=== PATIENT | male | born 1970 | race Hispanic/Latino ===

== ENCOUNTER 2019-06-13 09:41 | Inpatient (IN) | payer SELFPAY ==
[~2019-06-13] VITALS: Ht 162.6 cm; Wt 92.1 kg
[2019-06-13] MEDS ORDERED: IPRATROPIUM BROMIDE 0.02% 2.5 ML NEB NEB STA (10:35)
[2019-06-13] MEDS ORDERED: ALBUTEROL SULF 0.083% NEB SOLN 3 ML NEB NEB STA (10:35)
[2019-06-13] MEDS ORDERED: AZITHROMYCIN 500MG/NS 250 ML 250 ML IV ONE ×2 (11:00→15:30)
[2019-06-13] MEDS ORDERED: CEFTRIAXONE SOD 1 GM/NS 50 ML 50 ML IV ONE ×2 (11:00→14:45)
[2019-06-13 13:29] LABS: BASOPHILS # (AUTO) 0.1 (0.0-0.1); BASOPHILS % 0.7 % (0.0-1.0); EOSINOPHILS % 0.4 % (0.0-6.0); HEMATOCRIT 38.5 % (38.2-49.6); HEMOGLOBIN 12.9 g/dL (14.0-18.0); LYMPHOCYTES # (AUTO) 1.4 (1.0-3.2); LYMPHOCYTES % 19.6 % (18.0-39.1); MEAN CORPUSCULAR HEMOGLOBIN 29.7 pg (28-32); MEAN CORPUSCULAR HGB CONC 33.5 g/dL (31-35); MEAN CORPUSCULAR VOLUME 88.5 fL (81-99); MONOCYTES # (AUTO) 0.7 (0.2-0.8); MONOCYTES % 9.6 % (4.4-11.3); NEUTROPHILS # (AUTO) 4.8 (2.1-6.9); NEUTROPHILS % 69.3 % (38.7-80.0); PLATELET COUNT 277 x10e3/uL (140-360); RED BLOOD COUNT 4.35 x10e6/uL (4.3-5.7)
[2019-06-13] MEDS ORDERED: SODIUM CHLORIDE 0.9% 1000ML 1,000 ML IV STA ×2 (13:52)
[2019-06-13 13:54] LABS: ALANINE AMINOTRANSFERASE 19 IU/L (0-55); ALBUMIN 3.6 g/dL (3.5-5.0); ALBUMIN/GLOBULIN RATIO 0.8 (0.8-2.0); ALKALINE PHOSPHATASE 105 IU/L (40-150); ANION GAP 15.3 mmol/L (8-16); BLOOD UREA NITROGEN 24 mg/dL (7-26); BUN/CREATININE RATIO 23 (6-25); CALCIUM 10.1 mg/dL (8.4-10.2); CARBON DIOXIDE 24 mmol/L (22-29); CHLORIDE 100 mmol/L (98-107); CREATININE, SERUM 1.03 mg/dL (0.72-1.25); EST GLOMERULAR FILTRATION RATE > 60 ML/MIN (60-); GLUCOSE 159 mg/dL (74-118); POTASSIUM 4.3 mmol/L (3.5-5.1); SODIUM 135 mmol/L (136-145)
--- NOTE | 2019-06-13 15:19 | Diagnostic Imaging Report ---
EXAM: CT Chest WITH intravenous contrast 06/13/2019 10:35 AM INDICATION: Cough COMPARISON: None TECHNIQUE: Chest was scanned utilizing a multidetector helical scanner from the lung apex through the level of the adrenal glands after administration of IV contrast. Coronal and sagittal reformations were obtained. Routine protocol was performed. IV CONTRAST: 100mL Isovue 370 RADIATION DOSE: Total DLP: 462.0 mGy*cm. Dose modulation, iterative reconstruction, and/or weight based adjustment of the mA/kV was utilized to reduce the radiation dose to as low as reasonably achievable. COMPLICATIONS: None FINDINGS: LINES/ TUBES: None. LUNGS AND AIRWAYS: The central airways are patent. No focal consolidation. No pulmonary edema. Subsegmental atelectasis at the posterior left lower lobe. 5 mm lingular nodule (series 3 image 70). PLEURA: Moderate left pleural effusion. No pneumothorax. HEART AND MEDIASTINUM: The thyroid gland is normal. No supraclavicular, mediastinal, or hilar lymphadenopathy. The heart is not enlarged. No pericardial effusion. The main pulmonary artery is not enlarged. No central pulmonary embolism. UPPER ABDOMEN: Limited contrast-enhanced views of the upper abdomen demonstrate no focal abnormality of the partially visualized liver, spleen, pancreas, adrenals, or upper most kidneys. Partially visualized gallstone in the gallbladder. BONES: No acute osseous injury. No suspicious lytic or blastic lesions. SOFT TISSUES: Unremarkable. IMPRESSION: No focal pneumonia or pulmonary edema. Moderate left pleural effusion. 5 mm lingular nodule. If the patient is high risk, CT is optional at 12 months. If the patient is low risk, no further imaging follow-up is required. Cholelithiasis. Signed by: Chadwick Zamora MD on 06/13/2019 3:15 PM
[2019-06-13] MEDS ORDERED: SODIUM CHLORIDE FLUSH 10 ML SYR INJ PRN (15:45)
--- OUTSIDE RECORDS SUMMARY | 2019-06-13 15:46 | XMS REPORT ---
Author Author [facility] Address Unknown Phone Unavailable Care Team Providers Care Rail Transportation Operator Name Role Phone Jael MARIE Unavailable Unavailable Problems This patient has no known problems. Allergies, Adverse Reactions, Alerts This patient has no known allergies or adverse reactions. Medications This patient has no known medications. Results Test Description Test Time Test Comments Text Results Atomic Results Result Comments CT CHEST W 2019-06-13 15:07:00 [place] [address] Patient Name: SAIGE SUAREZ MR #: [id number] : 1970 Age/Sex: 48/M Req #: [id number] Adm Physician: Ordered by: TRA MELENDEZ BASS GUITAR TEACHER Report #: [id number] Location: ER Room/Bed: Procedure: [id number] CT/CT CHEST W Exam Date: 06/13/19 Exam Time: 1445 REPORT STATUS: Signed EXAM: CT Chest WITH intravenous contrast 06/13/2019 10:35 AM INDICATION: Cough COMPARISON: None TECHNIQUE: Chest was scanned utilizing a multidetector helical scanner from the lung apex through the level of the adrenal glands after administration of IV contrast. Coronal and sagittal reformations were obtained. Routine protocol was performed. IV CONTRAST: 100mL Isovue 370 RADIATION DOSE: Total DLP: 462.0 mGy*cm. Dose modulation, iterative reconstruction, and/or weight based adjustment of the mA/kV was utilized to reduce the radiation dose to as low as reasonably achievable. COMPLICATIONS: None FINDINGS: LINES/ TUBES: None. LUNGS AND AIRWAYS: The central airways are patent. No focal consolidation. No pulmonary edema. Subsegmental atelectasis at the posterior left lower lobe. 5 mm lingular nodule (series 3 image 70). PLEURA: Moderate left pleural effusion. No pneumothorax. HEART AND MEDIASTINUM: The thyroid gland is normal. No supraclavicular, mediastinal, or hilar lymphadenopathy. The heart is not enlarged. No pericardial effusion. The main pulmonary artery is not enlarged. No central pulmonary embolism. UPPER ABDOMEN: Limited contrast-enhanced views of the upper abdomen demonstrate no focal abnormality of the partially visualized liver, spleen, pancreas, adrenals, or upper most kidneys. Partially visualized gallstone in the gallbladder. BONES: No acute osseous injury. No suspicious lytic or blastic lesions. SOFT TISSUES: Unremarkable. IMPRESSION: No focal pneumonia or pulmonary edema. Moderate left pleural effusion. 5 mm lingular nodule. If the patient is high risk, CT is optional at 12 months. If the patient is low risk, no further imaging follow-up is required. Cholelithiasis. Signed by: Aide Munoz MD on 06/13/2019 3:15 PM Dictated By: AIDE MUNOZ MD [id number] Transcribed By: MARANDA on 06/13/19 0987 COPY TO: TRA MELENDEZ NP
[2019-06-13] MEDS ORDERED: DEXTROSE 50% SYRINGE 50 ML IV PRN (16:45)
[2019-06-13 17:06] VITALS: BP 122/75
[2019-06-13 17:10] VITALS: BP 122/75
--- NOTE | 2019-06-13 17:10 | NUR ---
PATIENT RECEIVED FROM ER PER STRETCHER. ALERT AND VERBALLY RESPONSIVE. SKIN WARM AND DRY TO TOUCH, WITH SOME BRUISES TO RIGHT UPPER CHEST. RESPIRATION EVEN AND UNLABORED, ABDOMEN SOFT AND NON DISTENDED. PATIENT ORIENTED TO SURROUNDINGS. BED IN LOWER POSITION, CALL LIGHT AT REACH. INSTRUCTED TO CALL FOR ASSISTANCE NEEDED. FAMILY AT BED SIDE
[2019-06-13] MEDS ORDERED: IOPAMIDOL 370 MG/ML 200 ML INFUS..BTL INJ ONE (18:46)
[2019-06-13] MEDS ORDERED: SODIUM CHLORIDE 0.9% 50ML 50 ML ONE (18:46)
[2019-06-13] MEDS: ALBUTEROL/IPRATROPIUM 3 ML NEB NEB SCH (19:20)
[2019-06-13 20:39] VITALS: BP 109/73
[2019-06-13] MEDS ORDERED: HYDROCHLOROTH12.5 MG PO (20:59)
[2019-06-13] MEDS ORDERED: ATORVASTATIN CA20 MG PO (20:59)
[2019-06-13] MEDS ORDERED: TESSALON PERLE100 MG PO (20:59)
[2019-06-13] MEDS ORDERED: PIOGLITAZONE HC45 MG PO (20:59)
[2019-06-13] MEDS ORDERED: GLIPIZIDE5 MG PO (20:59)
[2019-06-13] MEDS ORDERED: METOPROLOL TART50 MG PO (20:59)
[2019-06-13] MEDS ORDERED: AMOX TR-K CLV1 EAC2 PO (20:59)
[2019-06-13] MEDS ORDERED: METFORMIN HCL500 MG PO (20:59)
[2019-06-13] MEDS ORDERED: LISINOPRIL10 MG PO (20:59)
[2019-06-13 21:00] VITALS: BP 109/73
[2019-06-13] MEDS ORDERED: NON-FORMULARY MEDICATION (Benzonatate (Tessalon Perle) 200 MG) PO PRN (21:30)
[2019-06-13] MEDS ORDERED: BENZONATATE 100 MG CAP PO PRN (21:45)
[2019-06-13] MEDS ORDERED: ATORVASTATIN 40 MG TAB PO ONE (21:45)
[2019-06-13] MEDS ORDERED: ATORVASTATIN 20 MG TAB PO ONE (21:45)
[2019-06-13] MEDS: INSULIN REGULAR, HUMAN 100 UNIT/1 ML 3ML VIAL SQ SCH (22:01)
[2019-06-14] VITALS (8 sets, daily range): BP systolic 106–139; BP diastolic 65–74
[2019-06-14] MEDS: ALBUTEROL/IPRATROPIUM 3 ML NEB NEB SCH ×4 (01:00→19:52)
--- NOTE | 2019-06-14 01:33 | Consultation ---
DATE OF CONSULTATION: Pulmonary Consultation REASON FOR CONSULT: Pleural effusion. CHIEF COMPLAINT: Shortness of breath. HISTORY OF PRESENT ILLNESS: Mr. Romeo is a 48-year-old male, who presented to the emergency room with shortness of breath and cough. The patient went to a clinic and an x-ray was done, which showed pleural effusion and he was sent to the emergency room. He reports that the symptoms started a few days ago and progressively got worse. He was having some cough, chills, and muscle aches as well. He denies any nausea, vomiting, diarrhea. He smoked only 5 years in his life. When he came to the emergency room, his lactic acid was 3.1 and went down to 2.0. He is feeling better now. He received IV azithromycin and Rocephin in the emergency room. REVIEW OF SYSTEMS: GENERAL: Fever and chills. HEAD: Denies any head trauma. ENT: Denies any earache. CVS: Denies any chest pain. RESPIRATORY: Shortness of breath. GI: Denies any nausea or vomiting. Rest of the review of systems are negative except as in HPI. PAST MEDICAL HISTORY: Diabetes. PAST SURGICAL HISTORY: Fatty tumor removal. FAMILY AND SOCIAL HISTORY: He smoked only for 5 years in his life. He does not drink. PHYSICAL EXAMINATION: VITAL SIGNS: Temperature 97.1, pulse of 100, blood pressure 122/75. CHEST: Decreased air entry on the left side, otherwise clear to auscultation. No wheezing. No crackles. HEART: S1 and S2 audible. ABDOMEN: Soft. EXTREMITIES: No pedal edema. NEUROLOGIC: Awake and alert. No focal neurologic deficit. LABORATORY DATA: Reviewed. CT of the chest, I have reviewed the films, left-sided pleural effusion, very small nodule, which will need followup, possibility of underlying pneumonia because there is a left lower lobe infiltrate, which can be compression atelectasis due to fluid versus pneumonia. ASSESSMENT: Mr. Romeo is a 48-year-old male, admitted with shortness of breath, cough, fever, chills. Lactic acid was high, likely has pneumonia and parapneumonic effusion. PLAN: 1. Thoracentesis. 2. IV antibiotics. 3. We will check influenza antigen. Nebulizer treatment as ordered. Oxygen as needed to keep the O2 saturation more than or equal to 92%. Thank you for this consult. MD KANIKA Mueller/MAURISIO /[id number]
--- NOTE | 2019-06-14 01:43 | History and Physical ---
REASON FOR ADMISSION: A 48-year-old male comes in with shortness of breath and cough. HISTORY OF PRESENTING ILLNESS: Mr. Nestor Eastman was in his usual state of health until one week ago, the patient started with cough and congestion, exacerbated and got worse, saw an outside physician, was prescribed Augmentin and also given albuterol and Atrovent treatments. The patient did not get any better, cough got worse. The patient came into the hospital, was found to have pleural effusion and possible pneumonia. PAST MEDICAL HISTORY: History of diabetes mellitus, history of hypertension, and history of hyperlipidemia. MEDICATIONS: The patient has been taking oral medications for diabetes. The patient's medications he takes at home according to the is Pioglitazone 30 mg, he takes lisinopril/hydrochlorothiazide 40/12.5, atorvastatin 80 mg, and also the patient takes metformin at home. SOCIAL HISTORY: No EtOH. No IV drug abuse. PAST SURGICAL HISTORY: Positive for history of apparent right sebaceous cyst removal from the right breast. REVIEW OF SYSTEMS: Negative for chest pain. Positive for shortness of breath. Negative for nausea. No vomiting. No diarrhea. No constipation. No rectal bleeding. No hematochezia. No hematemesis either. PHYSICAL EXAMINATION: VITAL SIGNS: Temperature is 97.1, pulse of 103, respirations of 20, blood pressure is 122/75, and pulse oximetry 98% on room air. HEENT: Normocephalic and atraumatic. Pupils are reactive to light and accommodation. CVS: S1 and S2 normal. Regular rate and rhythm. ABDOMEN: Nontender and nondistended. LUNGS: Positive for decreased air entry on the left side and dullness on the left side. LABORATORY VALUES: White count of 6.98, hemoglobin of 12.9, and hematocrit of 38.5. Chemistry shows sodium of 135, potassium of 4.3, BUN of 24, and creatinine of 1.03. Lactic acid was 3.1, come down to 2.0. Fluids were given. IMAGING STUDIES: CT of the chest shows no focal pneumonia or pulmonary edema. Moderate left pleural effusion, 5 mm lingular nodule. The patient is at high-resolution CT potential option in 12 months, cholelithiasis too. ASSESSMENT: Mr. Nestor Eastman with: 1. Sepsis. 2. Pneumonia. 3. Pleural effusion, probably parapneumonic. 4. History of hypertension. 5. History of hyperlipidemia. 6. History of diabetes mellitus. PLAN: Continue monitoring the patient. Consult with Dr. Gross will be done. The patient also has an IR consult for pleural effusion drainage. Further recommendations per clinical course. Currently, the patient is on empiric antibiotic of Rocephin and Zithromax. MD HOLLEY Madden/MODL /[id number]
[2019-06-14 05:04] LABS: BASOPHILS % 0.4 % (0.0-1.0); EOSINOPHILS # (AUTO) 0.1 (0.0-0.4); EOSINOPHILS % 1.1 % (0.0-6.0); HEMATOCRIT 32.5 % (38.2-49.6); HEMOGLOBIN 11.1 g/dL (14.0-18.0); LYMPHOCYTES # (AUTO) 0.9 (1.0-3.2); LYMPHOCYTES % 19.3 % (18.0-39.1); MEAN CORPUSCULAR HEMOGLOBIN 29.8 pg (28-32); MEAN CORPUSCULAR HGB CONC 34.2 g/dL (31-35); MEAN CORPUSCULAR VOLUME 87.4 fL (81-99); MONOCYTES # (AUTO) 0.4 (0.2-0.8); MONOCYTES % 9.3 % (4.4-11.3); NEUTROPHILS # (AUTO) 3.1 (2.1-6.9); NEUTROPHILS % 69.5 % (38.7-80.0); PLATELET COUNT 228 x10e3/uL (140-360); RED BLOOD COUNT 3.72 x10e6/uL (4.3-5.7); RED CELL DISTRIBUTION WIDTH 11.9 % (11.7-14.4)
[2019-06-14 05:33] LABS: ANION GAP 11.9 mmol/L (8-16); BLOOD UREA NITROGEN 13 mg/dL (7-26); BUN/CREATININE RATIO 16 (6-25); CALCIUM 9.2 mg/dL (8.4-10.2); CARBON DIOXIDE 25 mmol/L (22-29); CHLORIDE 104 mmol/L (98-107); CREATININE, SERUM 0.79 mg/dL (0.72-1.25); EST GLOMERULAR FILTRATION RATE > 60 ML/MIN (60-); GLUCOSE 172 mg/dL (74-118); POTASSIUM 3.9 mmol/L (3.5-5.1); SODIUM 137 mmol/L (136-145)
--- NOTE | 2019-06-14 07:20 | NUR ---
PATIENT OUT OF BED TO CHAIR, NO COMPLAIN VOICED. CALL LIGHT AT EASY REACH.
[2019-06-14] MEDS: INSULIN REGULAR, HUMAN 100 UNIT/1 ML 3ML VIAL SQ SCH ×4 (07:30→21:23)
[2019-06-14] MEDS ORDERED: AZITHROMYCIN 250MG/NS 100 ML 100 ML IV SCH (08:00)
[2019-06-14] MEDS ORDERED: CEFTRIAXONE SOD 1 GM VIAL IV SCH (08:00)
[2019-06-14] MEDS: CEFTRIAXONE SOD 1 GM/NS 50 ML 50 ML IV SCH (08:30)
--- NOTE | 2019-06-14 08:50 | Diagnostic Imaging Report ---
EXAMINATION: CHEST SINGLE (PORTABLE) INDICATION: Pleural effusion COMPARISON: Chest CT of 06/13/2019 FINDINGS: LINES/TUBES:None LUNGS:The lung volumes are low. There is left basilar opacity silhouetting the left izzy diaphragm. PLEURA:Small left pleural effusion. No pneumothorax. MEDIASTINUM:The cardiomediastinal silhouette appears unchanged in size and shape. BONES/SOFT TISSUES:No acute osseous injury. ABDOMEN:No free air under the diaphragm. IMPRESSION: Low lung volumes. Small left pleural effusion. Patchy opacity at the left lung base likely represents associated subsegmental atelectasis. Signed by: Chadwick Zamora MD on 06/14/2019 8:47 AM
[2019-06-14] MEDS ORDERED: LISINOPRIL 10 MG TAB PO SCH (09:00)
[2019-06-14] MEDS ORDERED: PIOGLITAZONE HCL 45 MG TAB PO SCH (09:00)
[2019-06-14] MEDS ORDERED: NON-FORMULARY MEDICATION (Hydrochlorothiazide 12.5 MG) PO SCH (09:00)
[2019-06-14] MEDS: AZITHROMYCIN 500MG/NS 250 ML 250 ML IV SCH (09:25)
[2019-06-14] MEDS: METOPROLOL TARTRATE 50 MG TAB PO SCH (09:25)
[2019-06-14] MEDS: HYDROCHLOROTHIAZIDE 25 MG TAB PO SCH (09:25)
[2019-06-14] MEDS: LISINOPRIL 20 MG TAB PO SCH (09:25)
[2019-06-14] MEDS ORDERED: SODIUM CHLORIDE 0.9% 250ML 250 ML ONE (09:29)
--- NOTE | 2019-06-14 09:29 | Progress Note ---
DATE: SUBJECTIVE: The patient is a 48-year-old gentleman, who comes in with continuous cough, congestion. The patient came into the ER, who was found to have pleural effusion, possibly parapneumonic and lung nodule, and fever. Today, the patient complains of excessive sweating. No chest pain. Positive for some shortness of breath. No nausea. No vomiting. No diarrhea. MEDICATIONS: The patient is currently on azithromycin and Rocephin. He is also on insulin sliding scale and his regular medications, lisinopril, and metoprolol. PHYSICAL EXAMINATION: VITAL SIGNS: Temperature is 98.4, pulse of 90, respirations 16, blood pressure is 111/68, and pulse oximetry of 95%. HEENT: Normocephalic, atraumatic. Pupils are reactive to light and accommodation. CVS: S1 and S2 normal. Regular rate and rhythm. LUNGS: Positive for decreased air entry into the left lung munson. ABDOMEN: Nontender, nondistended. EXTREMITIES: No clubbing, no cyanosis, no edema. LABORATORY VALUES: White count is 4.50, hemoglobin of 11.1, hematocrit of 32.5. Chemistry of sodium 137, potassium 3.9. BUN of 13, creatinine 0.79, glucose at 172, lactic acid trended up from 3.1 to 2, calcium 9.2. ASSESSMENT: 1. Pneumonia. 2. Parapneumonic effusion. 3. Hypertension. 4. Hyperlipidemia. PLAN: The patient is on IV antibiotics at this time. We will continue the same. Thoracentesis to be scheduled today. The patient on O2 to keep saturation above 92%. Albuterol and Atrovent treatments. Further recommendation per clinical course and also depending on the thoracentesis. The patient's disposition will be here for another two more days depending on the progression of the pleural effusion and also clinical findings. Further recommendation per clinical course. We will continue to monitor the patient. MD HOLLEY Madden/MODL /[id number]
--- NOTE | 2019-06-14 11:28 | NUR ---
PATIENT ASSISTED TO THE RESTROOM AND BACK TO BED. SITTING UP IN BED TALKING TO FAMILY MEMBER VISITING. CALL LIGHT AT REACH.
[2019-06-14 12:07] LABS: INR 0.99; PROTHROMBIN TIME 13.6 seconds (11.9-14.5)
[2019-06-14 12:08] LABS: PARTIAL THROMBOPLASTIN TIME 29.5 seconds (23.8-35.5)
--- NOTE | 2019-06-14 14:24 | NUR ---
GAVE PACKET OF INFORMATION WITH COMMUNITY RESOURCES FOR ASSISTANCE WITH LOW TO NO INCOME TO PATIENT. RESOURCES THAT PATIENT MAY BE ABLE TO FOLLOW UP UPON DISCHARGE. PT EDUCATED ON EACH RESOURCE AND UNDERSTANDING HOW TO FOLLOW UP TO SEE IF QUALIFIED FOR EACH RESOURCE
--- NOTE | 2019-06-14 15:09 | NUR ---
BED SIDE THORACENTESIS COMPLETED. DRESSING INTACT TO LEFT BACK. PATIENT DENIED PAIN, CALL LIGHT AT REACH.
--- NOTE | 2019-06-14 15:25 | Diagnostic Imaging Report ---
PROCEDURE: Ultrasound-guided diagnostic and therapeutic thoracentesis Procedural Personnel Attending physician(s): Chadwick Zamora MD Fellow physician(s): None Resident physician(s): None Advanced practice provider(s): None Pre-procedure diagnosis: Left pleural effusion. Post-procedure diagnosis: Same Indication: Pleural effusion with compromised respiration Additional clinical history: None Complications: No immediate complications. IMPRESSION: Ultrasound-guided thoracentesis with drainage of 1000 mL of serous fluid. Plan: Resume care by clinical team. PROCEDURE SUMMARY: - Limited thoracic ultrasound - Ultrasound-guided thoracentesis - Additional procedure(s): None PROCEDURE DETAILS: Pre-procedure Consent: Informed consent for the procedure including risks, benefits and alternatives was obtained and time-out was performed prior to the procedure. Preparation: The site was prepared and draped using maximal sterile barrier technique including cutaneous antisepsis. Anesthesia/sedation Level of anesthesia/sedation: No sedation Anesthesia/sedation administered by: Not applicable Limited thoracic ultrasound Limited thoracic ultrasound was performed using a curved transducer. A safe window for thoracentesis was identified. Left hemithorax findings: Moderate pleural effusion Right hemithorax findings: Not investigated Thoracentesis Local anesthesia was administered. The pleural space was accessed under real-time ultrasound guidance and fluid return confirmed position. The fluid was drained. The catheter was removed, and a sterile bandage was applied. Catheter placed: 5F Deboraheh Post-drainage hemithorax findings: Not performed Additional Details Additional description of procedure: None Equipment details: None Specimens removed: Pleural fluid Estimated blood loss (mL): Less than 10 Standardized report: [email or web address] Attestation Signer name: Chadwick Zamora MD I attest that I was present for the entire procedure. I reviewed the stored images and agree with the report as written. Signed by: Chadwick Zamora MD on 06/14/2019 3:21 PM
--- NOTE | 2019-06-14 15:30 | Diagnostic Imaging Report ---
EXAMINATION: CHEST XRAY POST PROCEDURE INDICATION: Postprocedural COMPARISON: Thoracentesis of earlier the same day, chest radiograph of earlier the same day FINDINGS: LINES/TUBES:None LUNGS:The lung volumes are improved status post thoracentesis. There is left basilar opacity silhouetting the left izzy diaphragm. PLEURA:Small residual left pleural effusion. No pneumothorax status post thoracentesis. MEDIASTINUM:The cardiomediastinal silhouette appears unchanged in size and shape. BONES/SOFT TISSUES:No acute osseous injury. ABDOMEN:No free air under the diaphragm. IMPRESSION: No pneumothorax status post left thoracentesis. Small residual left pleural effusion. Patchy opacity at the left lung base, likely subsegmental atelectasis. Signed by: Chadwick Zamora MD on 06/14/2019 3:26 PM
--- NOTE | 2019-06-14 15:45 | NUR ---
1000 CC OF FLUID REMOVED DURING THORACENTESIS PER IR NURSE. DRESSING DRY AND INTACT TO LEFT BACK.
[2019-06-14 16:25] LABS: BODY FLUID COLOR YELLOW; BODY FLUID TYPE PLEURAL
[2019-06-14 16:26] LABS: BODY FLUID APPEARANCE CLOUDY
[2019-06-14 20:16] LABS: RBC,BODY FLUID 1564 cells/uL; WBC,BODY FLUID 4752 cells/uL
[2019-06-14 20:45] LABS: LYMPHOCYTES,BODY FLUID 64 %; MONO/MACROPHG,BODY FLUID 26 %; OTHER CELLS,BODY FLUID 10 %
[2019-06-14] MEDS ORDERED: ACETAMINOPHEN 325 MG TAB PO PRN (20:45)
[2019-06-14] MEDS ORDERED: ATORVASTATIN 20 MG TAB PO SCH (21:00)
[2019-06-14] MEDS ORDERED: ATORVASTATIN 40 MG TAB PO SCH (21:00)
[2019-06-14 21:18] LABS: NEUTROPHILS,BODY FLUID 0 %
[2019-06-15] VITALS: BP 106/65
[2019-06-15] MEDS: ALBUTEROL/IPRATROPIUM 3 ML NEB NEB SCH ×2 (00:45→07:00)
[2019-06-15 04:00] VITALS: BP 108/66
--- NOTE | 2019-06-15 07:57 | Progress Note ---
DATE: SUBJECTIVE: The patient is here for a possible parapneumonic effusion, status post thoracentesis, 1 L was removed yesterday, sent for studies. The patient is currently feeling much better. Shortness of breath is decreased. No cough. No congestion. Ran a little fever yesterday, but otherwise in good spirits. OBJECTIVE: VITAL SIGNS: Temperature is 98.4, T-max is 99.8 at 2142 yesterday, respirations 16, blood pressure is 108/66, pulse oximetry of 100%. HEENT: Normocephalic and atraumatic. Pupils are reactive to light and accommodation. CVS: S1 and S2 normal. Regular rate and rhythm. LUNGS: Left lung still with some dullness and decreased air entry. EXTREMITIES: No clubbing. No cyanosis. No edema. ABDOMEN: Nontender. LABORATORY VALUES: None done today. Chemistries from yesterday, glucoses have been running in the 170s to 200. Chest x-ray yesterday, status post removal shows no pneumothorax and small residual left pleural effusion. Patchy opacity in the left lung base, likely subsegmental atelectasis. ASSESSMENT: 1. Pneumonia. 2. Possible parapneumonic effusion. 3. Pleural effusion. 4. Hypertension. 5. Hyperlipidemia. 6. Diabetes mellitus. PLAN: Continue with IV antibiotics. The patient can be discharged tomorrow on p.o. antibiotics. We will continue to monitor the patient. The patient has to be followed up as an outpatient for followup of pleural fluid and the patient has been given strict warnings about this and will have to follow up with his primary care physician and/or safety investigator depending on the findings. Further recommendation per clinical course. We will continue monitor the patient and possible discharge tomorrow. MD HOLLEY Madden/LUIS AL /[id number]
[2019-06-15 08:08] VITALS: BP 127/73
[2019-06-15] MEDS: METOPROLOL TARTRATE 50 MG TAB PO SCH (08:19)
[2019-06-15] MEDS: HYDROCHLOROTHIAZIDE 25 MG TAB PO SCH (08:19)
[2019-06-15] MEDS: CEFTRIAXONE SOD 1 GM/NS 50 ML 50 ML IV SCH (08:19)
[2019-06-15] MEDS: LISINOPRIL 20 MG TAB PO SCH (08:19)
[2019-06-15 08:21] VITALS: BP 127/73
[2019-06-15] MEDS: AZITHROMYCIN 500MG/NS 250 ML 250 ML IV SCH (09:00)
[2019-06-15] MEDS ORDERED: AUGMENTIN 500-1 EACH PO (11:16)
[2019-06-15] MEDS ORDERED: DOXYCYCLINE HY100 MG PO (11:16)
--- NOTE | 2019-06-15 12:00 | NUR ---
Discharge instructions and prescriptions were given to the patient. He verbalized understanding. Iv's were removed with tip intact
== END 2019-06-15 12:02 | disposition home or self-care (01) | DRG 194 ==
LOC: ER 09:41 → ERHOLD 15:44 → MED/SURG2 16:58
PROVIDERS: ADMIT Family Medicine; ATTEND Family Medicine
PROC: 0W9B3ZZ Drainage of Left Pleural Cavity, Percutaneous Approach (ICD-10-PCS; principal; 2019-06-14)
DX: J18.9 Pneumonia, unspecified organism (principal); J91.8 Pleural effusion in other conditions classified elsewhere; I10 Essential (primary) hypertension; E78.5 Hyperlipidemia, unspecified; E11.9 Type 2 diabetes mellitus without complications; Z87.891 Personal history of nicotine dependence; Z79.84 Long term (current) use of oral hypoglycemic drugs
CPT/HCPCS: 32555; 36415; 71045; 71260; 74470; 80048; 80053; 82948; 83605; 83615; 84157; 85025; 85610; 85730; 87040; 87070; 87205; 88112; 88305; 89051; 94640; 99284; J0456; J0696; J1817; J7030; J7050; Q9967

== ENCOUNTER → 2019-06-29 | Outpatient (CLI) | payer SELFPAY ==
[~2019-06-29] MED LIST: AMOX TR-K CLV1 EAC2 PO; ATORVASTATIN CA20 MG PO; AUGMENTIN 500-1 EACH PO; DOXYCYCLINE HY100 MG PO; GLIPIZIDE5 MG PO; HYDROCHLOROTH12.5 MG PO; LISINOPRIL10 MG PO; METFORMIN HCL500 MG PO; METOPROLOL TART50 MG PO; PIOGLITAZONE HC45 MG PO; TESSALON PERLE100 MG PO
--- NOTE | 2019-06-29 11:10 | Diagnostic Imaging Report ---
Chest, PA and lateral. History: Oral effusion. Comparison: 06/14/2019. Discussion: The heart is within normal limits of size. The mediastinal and hilar contours are unremarkable. Left basilar atelectasis is present. The right lung is grossly clear. There is no pneumothorax. No sizable pleural effusion. IMPRESSION: Left basilar atelectasis. No sizable pleural effusion. Signed by: Sam Conti MD on 06/29/2019 11:06 AM
== END ==
LOC: RAD 10:24
PROVIDERS: ATTEND Family Medicine
DX: J90 Pleural effusion, not elsewhere classified (principal)
CPT/HCPCS: 71046

== ENCOUNTER 2023-06-22 21:13 | Inpatient (IN) | payer OTHER ==
[~2023-06-22] VITALS: Ht 170.2 cm; Wt 78.0 kg
[~2023-06-22 21:13] MED LIST changes: +AZITHROMYCIN250 MG PO; +CEFDINIR300 MG PO
[2023-06-22 22:39] LABS: BASOPHILS % 0.4 % (0.0-1.0); EOSINOPHILS # (AUTO) 0.1 (0.0-0.4); EOSINOPHILS % 0.7 % (0.0-6.0); HEMATOCRIT 45.2 % (38.2-49.6); LYMPHOCYTES # (AUTO) 1.6 (1.0-3.2); LYMPHOCYTES % 22.1 % (18.0-39.1); MEAN CORPUSCULAR HEMOGLOBIN 30.7 pg (28-32); MEAN CORPUSCULAR VOLUME 99.1 fL (81-99); MONOCYTES # (AUTO) 0.5 (0.2-0.8); MONOCYTES % 7.7 % (4.4-11.3); NEUTROPHILS # (AUTO) 4.8 (2.1-6.9); PLATELET COUNT 147 x10e3/uL (140-360); RED BLOOD COUNT 4.56 x10e6/uL (4.3-5.7); RED CELL DISTRIBUTION WIDTH 14.6 % (11.7-14.4); WHITE BLOOD COUNT 7.02 x10e3/uL (4.8-10.8)
[2023-06-22 23:04] LABS: ALANINE AMINOTRANSFERASE 20 IU/L (0-55); ALBUMIN 4.3 g/dL (3.5-5.0); ALBUMIN/GLOBULIN RATIO 1.1 (0.8-2.0); ALKALINE PHOSPHATASE 99 IU/L (40-150); ANION GAP 15.6 mmol/L (8-16); BILIRUBIN,TOTAL 0.5 mg/dL (0.2-1.2); BLOOD UREA NITROGEN 27 mg/dL (7-26); BUN/CREATININE RATIO 26 (6-25); CALCIUM 9.9 mg/dL (8.4-10.2); CARBON DIOXIDE 26 mmol/L (22-29); CHLORIDE 103 mmol/L (98-107); CREATINE KINASE 344 IU/L (30-200); CREATININE, SERUM 1.02 mg/dL (0.72-1.25); EST GLOMERULAR FILTRATION RATE 88 ML/MIN (>=60); GLUCOSE 195 mg/dL (74-118); POTASSIUM 4.6 mmol/L (3.6-4.7); SODIUM 140 mmol/L (136-145); TOTAL PROTEIN 8.3 g/dL (6.5-8.1)
[2023-06-22 23:11] LABS: TROPONIN I < 0.001 ng/mL (0-0.300)
[2023-06-23] VITALS (11 sets, daily range): BP systolic 120–131; BP diastolic 77–87; PULSE 82–94; RESP 18; TEMP 97.7–99.9; O2SAT 96–100
[2023-06-23] MEDS ORDERED: Morphine 4mg INJECTION 4 MG/ML INJ IV PRN (00:45)
[2023-06-23] MEDS ORDERED: SODIUM CHLORIDE 0.9% 1000ML 1,000 ML IV SCH (00:45)
[2023-06-23] MEDS ORDERED: ISONIAZID 300 MG TAB PO SCH (00:45)
[2023-06-23] MEDS ORDERED: ONDANSETRON HCL INJ 2MG/ML 2ML 2 MG/ML VIAL IV PRN (00:45)
[2023-06-23] MEDS ORDERED: TUBERCULIN, PPD INJ 5 TU/0.1 ML INJ ID ONE (01:00)
[2023-06-23] MEDS ORDERED: IOPAMIDOL 370 MG/ML 100 ML INFUS..BTL INJ ONE (04:46)
[2023-06-23] MEDS ORDERED: FLUTICASONE P15.8 ML (05:29)
[2023-06-23] MEDS ORDERED: CETIRIZINE HCL10 MG PO (05:30)
[2023-06-23] MEDS ORDERED: GLIPIZIDE5 MG PO (05:30)
[2023-06-23] MEDS ORDERED: METFORMIN HCL500 MG PO (05:30)
[2023-06-23] MEDS ORDERED: ZOLPIDEM TARTRATE 5 MG TAB PO PRN (09:30)
[2023-06-23] MEDS ORDERED: BENZONATATE 100 MG CAP PO PRN (09:30)
[2023-06-23] MEDS: GLIPIZIDE 5 MG TAB PO SCH ×2 (09:46→16:52)
[2023-06-23] MEDS ORDERED: METOPROLOL TARTRATE 50 MG TAB PO ONE (10:15)
[2023-06-23] MEDS ORDERED: DEXTROSE 50% SYRINGE 50 ML IV PRN (10:45)
[2023-06-23] MEDS: INSULIN REGULAR, HUMAN 100 UNIT/1 ML SQ SCH ×3 (11:43→21:07)
[2023-06-23] MEDS ORDERED: METFORMIN HCL 500 MG TAB PO SCH (17:00)
[2023-06-23] MEDS ORDERED: CEFTRIAXONE 2 GM in SODIUM CHLORIDE 0.9% 100 ML IV SCH (17:30)
[2023-06-23 18:16] LABS: HIV 1&2 AB SCREEN NON-REACTIVE (NONREACTIVE)
[2023-06-24] VITALS (9 sets, daily range): BP systolic 111–146; BP diastolic 71–95; PULSE 86–113; RESP 18–19; TEMP 98.4–102.5; O2SAT 95–100
[2023-06-24 07:48] LABS: BASOPHILS % 0.5 % (0.0-1.0); EOSINOPHILS % 0.2 % (0.0-6.0); HEMATOCRIT 41.3 % (38.2-49.6); HEMOGLOBIN 13.9 g/dL (14.0-18.0); LYMPHOCYTES # (AUTO) 0.8 (1.0-3.2); LYMPHOCYTES % 12.9 % (18.0-39.1); MEAN CORPUSCULAR HEMOGLOBIN 29.4 pg (28-32); MEAN CORPUSCULAR HGB CONC 33.7 g/dL (31-35); MEAN CORPUSCULAR VOLUME 87.5 fL (81-99); MONOCYTES # (AUTO) 0.7 (0.2-0.8); MONOCYTES % 10.7 % (4.4-11.3); NEUTROPHILS # (AUTO) 4.8 (2.1-6.9); NEUTROPHILS % 75.5 % (38.7-80.0); PLATELET COUNT 154 x10e3/uL (140-360); RED BLOOD COUNT 4.72 x10e6/uL (4.3-5.7); RED CELL DISTRIBUTION WIDTH 13.1 % (11.7-14.4); WHITE BLOOD COUNT 6.37 x10e3/uL (4.8-10.8)
[2023-06-24 08:07] LABS: ALBUMIN 3.7 g/dL (3.5-5.0); ANION GAP 14.2 mmol/L (8-16); BILIRUBIN,TOTAL 0.7 mg/dL (0.2-1.2); CALCIUM 9.1 mg/dL (8.4-10.2); CREATININE, SERUM 0.9 mg/dL (0.72-1.25); POTASSIUM 4.2 mmol/L (3.5-5.1); TOTAL PROTEIN 7.3 g/dL (6.5-8.1)
[2023-06-24] MEDS: GLIPIZIDE 5 MG TAB PO SCH ×2 (09:08→16:23)
[2023-06-24] MEDS: METOPROLOL TARTRATE 50 MG TAB PO SCH (09:09)
[2023-06-24] MEDS: INSULIN REGULAR, HUMAN 100 UNIT/1 ML SQ SCH ×4 (10:29→21:21)
[2023-06-24] MEDS: ACETAMINOPHEN 325 MG TAB PO PRN ×2 (11:11→16:27)
[2023-06-24] MEDS ORDERED: ONDANSETRON HCL 4 MG ORAL DISINTEGRATING TAB PO PRN (11:15)
[2023-06-24] MEDS ORDERED: SODIUM CHLORIDE 0.9% 200 ML ONE (11:37)
[2023-06-24] MEDS ORDERED: CEFTRIAXONE 2 GM VIAL ONE (11:37)
[2023-06-24] MEDS: CEFTRIAXONE 2 GM in SODIUM CHLORIDE 0.9% 100 ML IV SCH ×2 (11:38→21:08)
[2023-06-24] MEDS ORDERED: IBUPROFEN 600 MG TAB PO PRN (19:45)
[2023-06-25] VITALS (8 sets, daily range): BP systolic 106–128; BP diastolic 72–85; PULSE 62–107; RESP 17–20; TEMP 98.1–102.6; O2SAT 97–98
[2023-06-25] MEDS: GLIPIZIDE 5 MG TAB PO SCH ×2 (08:51→16:57)
[2023-06-25] MEDS: METOPROLOL TARTRATE 50 MG TAB PO SCH (08:52)
[2023-06-25] MEDS: CEFTRIAXONE 2 GM in SODIUM CHLORIDE 0.9% 100 ML IV SCH ×2 (08:52→21:32)
[2023-06-25] MEDS: INSULIN REGULAR, HUMAN 100 UNIT/1 ML SQ SCH ×4 (09:16→20:09)
[2023-06-25] MEDS: ACETAMINOPHEN 325 MG TAB PO PRN (16:57)
[2023-06-26] VITALS (8 sets, daily range): BP systolic 110–134; BP diastolic 62–78; PULSE 62–101; RESP 18–20; TEMP 97.7–98.8; O2SAT 97–99
[2023-06-26] MEDS: ACETAMINOPHEN 325 MG TAB PO PRN (07:03)
[2023-06-26] MEDS: CEFTRIAXONE 2 GM in SODIUM CHLORIDE 0.9% 100 ML IV SCH ×2 (09:31→21:20)
[2023-06-26] MEDS: METOPROLOL TARTRATE 50 MG TAB PO SCH (09:32)
[2023-06-26] MEDS: GLIPIZIDE 5 MG TAB PO SCH ×2 (09:32→16:44)
[2023-06-26] MEDS: INSULIN REGULAR, HUMAN 100 UNIT/1 ML SQ SCH ×4 (09:33→21:00)
[2023-06-27] VITALS (8 sets, daily range): BP systolic 119–130; BP diastolic 77–89; PULSE 81–101; RESP 16–20; TEMP 97.6–99.3; O2SAT 97–100
[2023-06-27 05:30] LABS: BASOPHILS % 0.5 % (0.0-1.0); EOSINOPHILS % 0.5 % (0.0-6.0); HEMATOCRIT 37.3 % (38.2-49.6); HEMOGLOBIN 12.6 g/dL (14.0-18.0); LYMPHOCYTES # (AUTO) 0.8 (1.0-3.2); LYMPHOCYTES % 19.9 % (18.0-39.1); MEAN CORPUSCULAR HEMOGLOBIN 29.3 pg (28-32); MEAN CORPUSCULAR HGB CONC 33.8 g/dL (31-35); MEAN CORPUSCULAR VOLUME 86.7 fL (81-99); MONOCYTES # (AUTO) 0.7 (0.2-0.8); MONOCYTES % 16.5 % (4.4-11.3); NEUTROPHILS # (AUTO) 2.6 (2.1-6.9); NEUTROPHILS % 62.4 % (38.7-80.0); PLATELET COUNT 149 x10e3/uL (140-360); RED CELL DISTRIBUTION WIDTH 13.3 % (11.7-14.4); WHITE BLOOD COUNT 4.12 x10e3/uL (4.8-10.8)
[2023-06-27 05:59] LABS: CALCIUM 8.7 mg/dL (8.4-10.2); CREATININE, SERUM 0.83 mg/dL (0.72-1.25)
[2023-06-27] MEDS: CEFTRIAXONE 2 GM in SODIUM CHLORIDE 0.9% 100 ML IV SCH ×2 (10:10→21:28)
[2023-06-27] MEDS: METOPROLOL TARTRATE 50 MG TAB PO SCH (10:11)
[2023-06-27] MEDS: GLIPIZIDE 5 MG TAB PO SCH ×2 (10:12→17:09)
[2023-06-27] MEDS: INSULIN REGULAR, HUMAN 100 UNIT/1 ML SQ SCH ×4 (10:17→21:29)
[2023-06-28] VITALS (7 sets, daily range): BP systolic 112–133; BP diastolic 79–87; PULSE 89–105; RESP 16–19; TEMP 98.5–100.2; O2SAT 98–100
[2023-06-28] MEDS ORDERED: RIFAMPIN 300 MG CAP PO SCH (09:00)
[2023-06-28] MEDS ORDERED: ISONIAZID 300 MG TAB PO SCH (09:00)
[2023-06-28] MEDS: PYRIDOXINE HCL 50 MG TAB PO SCH ×2 (10:00→13:08)
[2023-06-28] MEDS: GLIPIZIDE 5 MG TAB PO SCH ×2 (10:34→16:57)
[2023-06-28] MEDS: METOPROLOL TARTRATE 50 MG TAB PO SCH (10:34)
[2023-06-28] MEDS: CEFTRIAXONE 2 GM in SODIUM CHLORIDE 0.9% 100 ML IV SCH ×2 (10:34→22:07)
[2023-06-28] MEDS: INSULIN REGULAR, HUMAN 100 UNIT/1 ML SQ SCH ×4 (10:36→22:09)
[2023-06-28] MEDS: ISONIAZID 300 MG TAB PO SCH (13:07)
[2023-06-28] MEDS: ETHAMBUTOL HCL 400 MG TAB PO SCH (13:07)
[2023-06-28] MEDS: RIFAMPIN 300 MG CAP PO SCH (13:07)
[2023-06-28] MEDS: PYRAZINAMIDE 500 MG TAB PO SCH (13:46)
[2023-06-28] MEDS: ACETAMINOPHEN 325 MG TAB PO PRN (22:07)
[2023-06-29 01:06] VITALS: BP 108/72; PULSE 86; RESP 18; TEMP 100.2; O2SAT 97
[2023-06-29 07:19] VITALS: BP 116/78; PULSE 86; RESP 18; TEMP 97.8; O2SAT 100
[2023-06-29] MEDS: CEFTRIAXONE 2 GM in SODIUM CHLORIDE 0.9% 100 ML IV SCH ×2 (08:41→21:29)
[2023-06-29] MEDS: PIOGLITAZONE HCL 45 MG TAB PO SCH (08:42)
[2023-06-29] MEDS: ISONIAZID 300 MG TAB PO SCH (08:42)
[2023-06-29] MEDS: RIFAMPIN 300 MG CAP PO SCH (08:42)
[2023-06-29] MEDS: PYRAZINAMIDE 500 MG TAB PO SCH (08:42)
[2023-06-29] MEDS: ETHAMBUTOL HCL 400 MG TAB PO SCH (08:43)
[2023-06-29] MEDS: METOPROLOL TARTRATE 50 MG TAB PO SCH (08:43)
[2023-06-29] MEDS: PYRIDOXINE HCL 50 MG TAB PO SCH (08:43)
[2023-06-29] MEDS: GLIPIZIDE 5 MG TAB PO SCH ×2 (08:44→17:02)
[2023-06-29 08:45] VITALS: BP 118/78; PULSE 86; RESP 18; TEMP 97.8; O2SAT 100
[2023-06-29] MEDS: INSULIN REGULAR, HUMAN 100 UNIT/1 ML SQ SCH ×4 (08:45→21:30)
[2023-06-29] MEDS ORDERED: VITAMIN B-650 MG PO (10:38)
[2023-06-29] MEDS ORDERED: RIFAMPIN300 MG PO (10:39)
[2023-06-29] MEDS ORDERED: PYRAZINAMIDE500 MG PO (10:40)
[2023-06-29] MEDS ORDERED: ISONIAZID300 MG PO (10:40)
[2023-06-29] MEDS ORDERED: ETHAMBUTOL HCL400 MG PO (10:41)
[2023-06-29 15:12] VITALS: BP 117/77; PULSE 82; RESP 20; TEMP 98.2; O2SAT 99
[2023-06-29 20:00] VITALS: BP 112/82; PULSE 83; RESP 20; TEMP 98; O2SAT 100
[2023-06-29 22:27] VITALS: BP 112/82; PULSE 83; RESP 20; TEMP 98; O2SAT 100
[2023-06-30] VITALS (8 sets, daily range): BP systolic 112–140; BP diastolic 73–85; PULSE 78–91; RESP 16–20; TEMP 97.6–98.8; O2SAT 98–99
[2023-06-30 06:17] LABS: BASOPHILS % 0.5 % (0.0-1.0); EOSINOPHILS # (AUTO) 0.1 (0.0-0.4); EOSINOPHILS % 1.8 % (0.0-6.0); HEMATOCRIT 38.4 % (38.2-49.6); HEMOGLOBIN 12.9 g/dL (14.0-18.0); LYMPHOCYTES # (AUTO) 1.2 (1.0-3.2); LYMPHOCYTES % 30.8 % (18.0-39.1); MEAN CORPUSCULAR HEMOGLOBIN 29.3 pg (28-32); MEAN CORPUSCULAR HGB CONC 33.6 g/dL (31-35); MEAN CORPUSCULAR VOLUME 87.1 fL (81-99); MONOCYTES # (AUTO) 0.4 (0.2-0.8); MONOCYTES % 10.8 % (4.4-11.3); NEUTROPHILS # (AUTO) 2.2 (2.1-6.9); NEUTROPHILS % 55.8 % (38.7-80.0); PLATELET COUNT 171 x10e3/uL (140-360); RED BLOOD COUNT 4.41 x10e6/uL (4.3-5.7); RED CELL DISTRIBUTION WIDTH 13.3 % (11.7-14.4); WHITE BLOOD COUNT 3.99 x10e3/uL (4.8-10.8)
[2023-06-30 06:53] LABS: ALBUMIN 3.3 g/dL (3.5-5.0); ALBUMIN/GLOBULIN RATIO 0.8 (0.8-2.0); ANION GAP 13.6 mmol/L (8-16); BILIRUBIN,TOTAL 0.4 mg/dL (0.2-1.2); CALCIUM 9.1 mg/dL (8.4-10.2); CREATININE, SERUM 1.04 mg/dL (0.72-1.25); POTASSIUM 4.6 mmol/L (3.5-5.1); TOTAL PROTEIN 7.4 g/dL (6.5-8.1)
[2023-06-30] MEDS: RIFAMPIN 300 MG CAP PO SCH (08:50)
[2023-06-30] MEDS: CEFTRIAXONE 2 GM in SODIUM CHLORIDE 0.9% 100 ML IV SCH (08:50)
[2023-06-30] MEDS: ETHAMBUTOL HCL 400 MG TAB PO SCH (08:50)
[2023-06-30] MEDS: GLIPIZIDE 5 MG TAB PO SCH ×3 (08:51→17:23)
[2023-06-30] MEDS: PIOGLITAZONE HCL 45 MG TAB PO SCH (08:51)
[2023-06-30] MEDS: PYRIDOXINE HCL 50 MG TAB PO SCH (08:52)
[2023-06-30] MEDS: ISONIAZID 300 MG TAB PO SCH (08:52)
[2023-06-30] MEDS: PYRAZINAMIDE 500 MG TAB PO SCH (08:54)
[2023-06-30] MEDS: INSULIN REGULAR, HUMAN 100 UNIT/1 ML SQ SCH ×4 (09:08→21:30)
[2023-06-30] MEDS: METOPROLOL TARTRATE 50 MG TAB PO SCH (09:12)
[2023-07-01] VITALS (7 sets, daily range): BP systolic 110–123; BP diastolic 75–85; PULSE 68–91; RESP 15–18; TEMP 97.3–98.5; O2SAT 95–100
[2023-07-01] MEDS: PYRAZINAMIDE 500 MG TAB PO SCH (08:00)
[2023-07-01] MEDS: RIFAMPIN 300 MG CAP PO SCH (08:00)
[2023-07-01] MEDS: ISONIAZID 300 MG TAB PO SCH (08:00)
[2023-07-01] MEDS: GLIPIZIDE 5 MG TAB PO SCH (08:00)
[2023-07-01] MEDS: METOPROLOL TARTRATE 50 MG TAB PO SCH (08:01)
[2023-07-01] MEDS: PIOGLITAZONE HCL 45 MG TAB PO SCH (08:01)
[2023-07-01] MEDS: PYRIDOXINE HCL 50 MG TAB PO SCH (08:01)
[2023-07-01] MEDS: ETHAMBUTOL HCL 400 MG TAB PO SCH (08:02)
[2023-07-01] MEDS: INSULIN REGULAR, HUMAN 100 UNIT/1 ML SQ SCH ×4 (08:06→21:05)
[2023-07-02] VITALS (9 sets, daily range): BP systolic 115–133; BP diastolic 62–88; PULSE 71–103; RESP 18–20; TEMP 97.1–98.8; O2SAT 96–100
[2023-07-02] MEDS: RIFAMPIN 300 MG CAP PO SCH (09:30)
[2023-07-02] MEDS: ISONIAZID 300 MG TAB PO SCH (09:31)
[2023-07-02] MEDS: GLIPIZIDE 5 MG TAB PO SCH ×2 (09:31→15:14)
[2023-07-02] MEDS: ETHAMBUTOL HCL 400 MG TAB PO SCH (09:31)
[2023-07-02] MEDS: PYRAZINAMIDE 500 MG TAB PO SCH (09:31)
[2023-07-02] MEDS: PYRIDOXINE HCL 50 MG TAB PO SCH (09:32)
[2023-07-02] MEDS: METOPROLOL TARTRATE 50 MG TAB PO SCH (09:32)
[2023-07-02] MEDS: PIOGLITAZONE HCL 45 MG TAB PO SCH (09:32)
[2023-07-02] MEDS: INSULIN REGULAR, HUMAN 100 UNIT/1 ML SQ SCH ×4 (09:33→21:25)
[2023-07-03] VITALS (8 sets, daily range): BP systolic 104–132; BP diastolic 77–88; PULSE 68–87; RESP 18–20; TEMP 97.2–100.6; O2SAT 98–100
[2023-07-03] MEDS: INSULIN REGULAR, HUMAN 100 UNIT/1 ML SQ SCH ×4 (08:32→20:10)
[2023-07-03] MEDS: GLIPIZIDE 5 MG TAB PO SCH ×2 (08:32→16:17)
[2023-07-03] MEDS: PYRAZINAMIDE 500 MG TAB PO SCH (08:33)
[2023-07-03] MEDS: ETHAMBUTOL HCL 400 MG TAB PO SCH (08:34)
[2023-07-03] MEDS: PIOGLITAZONE HCL 45 MG TAB PO SCH (08:34)
[2023-07-03] MEDS: METOPROLOL TARTRATE 50 MG TAB PO SCH (08:34)
[2023-07-03] MEDS: PYRIDOXINE HCL 50 MG TAB PO SCH (08:35)
[2023-07-03] MEDS: ISONIAZID 300 MG TAB PO SCH (08:35)
[2023-07-03] MEDS: RIFAMPIN 300 MG CAP PO SCH (09:00)
[2023-07-03] MEDS: METFORMIN HCL 500 MG TAB PO SCH (16:17)
[2023-07-04] VITALS: BP 116/75; PULSE 75; RESP 18; TEMP 97.8; O2SAT 99
[2023-07-04 05:13] VITALS: BP 124/86; PULSE 79; RESP 19; TEMP 97.8; O2SAT 100
[2023-07-04 06:10] LABS: BASOPHILS % 0.7 % (0.0-1.0); EOSINOPHILS # (AUTO) 0.1 (0.0-0.4); EOSINOPHILS % 1.6 % (0.0-6.0); HEMATOCRIT 37.5 % (38.2-49.6); HEMOGLOBIN 12.3 g/dL (14.0-18.0); LYMPHOCYTES # (AUTO) 1.3 (1.0-3.2); LYMPHOCYTES % 21.7 % (18.0-39.1); MEAN CORPUSCULAR HGB CONC 32.8 g/dL (31-35); MEAN CORPUSCULAR VOLUME 88.4 fL (81-99); MONOCYTES # (AUTO) 0.5 (0.2-0.8); MONOCYTES % 8.3 % (4.4-11.3); NEUTROPHILS # (AUTO) 4.1 (2.1-6.9); PLATELET COUNT 233 x10e3/uL (140-360); RED BLOOD COUNT 4.24 x10e6/uL (4.3-5.7); RED CELL DISTRIBUTION WIDTH 13.3 % (11.7-14.4); WHITE BLOOD COUNT 6.12 x10e3/uL (4.8-10.8)
[2023-07-04 06:53] LABS: ALBUMIN 3.2 g/dL (3.5-5.0); ALBUMIN/GLOBULIN RATIO 0.8 (0.8-2.0); ANION GAP 11.2 mmol/L (8-16); BILIRUBIN,TOTAL 0.3 mg/dL (0.2-1.2); CREATININE, SERUM 0.89 mg/dL (0.72-1.25); POTASSIUM 4.2 mmol/L (3.5-5.1); TOTAL PROTEIN 7.1 g/dL (6.5-8.1)
[2023-07-04 08:00] VITALS: BP 138/84; PULSE 96; RESP 19; TEMP 98.7; O2SAT 100
[2023-07-04 08:47] VITALS: BP 138/84; PULSE 96; RESP 19; TEMP 98.7; O2SAT 100
[2023-07-04] MEDS: ISONIAZID 300 MG TAB PO SCH (08:59)
[2023-07-04] MEDS: PYRAZINAMIDE 500 MG TAB PO SCH (08:59)
[2023-07-04] MEDS: METOPROLOL TARTRATE 50 MG TAB PO SCH (09:00)
[2023-07-04] MEDS: PYRIDOXINE HCL 50 MG TAB PO SCH (09:00)
[2023-07-04] MEDS: RIFAMPIN 300 MG CAP PO SCH (09:00)
[2023-07-04] MEDS: METFORMIN HCL 500 MG TAB PO SCH (09:00)
[2023-07-04] MEDS: PIOGLITAZONE HCL 45 MG TAB PO SCH (09:00)
[2023-07-04] MEDS: ETHAMBUTOL HCL 400 MG TAB PO SCH (09:00)
[2023-07-04] MEDS: GLIPIZIDE 5 MG TAB PO SCH (09:01)
[2023-07-04] MEDS: INSULIN REGULAR, HUMAN 100 UNIT/1 ML SQ SCH ×2 (09:02→12:43)
[2023-07-04 12:00] VITALS: BP 121/93; PULSE 80; RESP 19; TEMP 98.5; O2SAT 100
== END 2023-07-04 15:55 | disposition home or self-care (01) | DRG 194 ==
LOC: ER 21:18 → ERHOLD 06-23 00:31 → MED/SURG2 06-23 01:40
PROVIDERS: ADMIT Internal Medicine; ATTEND Internal Medicine
DX: J15.9 Unspecified bacterial pneumonia (principal); A15.9 Respiratory tuberculosis unspecified; R04.2 Hemoptysis; E11.9 Type 2 diabetes mellitus without complications; I10 Essential (primary) hypertension; E78.00 Pure hypercholesterolemia, unspecified; J30.2 Other seasonal allergic rhinitis; K21.9 Gastro-esophageal reflux disease without esophagitis; Z20.822 Contact with and (suspected) exposure to COVID-19; Z79.84 Long term (current) use of oral hypoglycemic drugs; Z79.899 Other long term (current) drug therapy; Z86.711 Personal history of pulmonary embolism
CPT/HCPCS: 36415; 70491; 71045; 71260; 80048; 80053; 82550; 82948; 83690; 83880; 84484; 85025; 87040; 87116; 87206; 87390; 87536; 93005; 94799; 96372; 99252; 99284; G0433; G0435; J0696; J7030; J7050; Q0162; Q9967; U0002